=== PATIENT | male | born 2000 ===

== ENCOUNTER 2024-02-26 18:00 | Emergency (ER) | payer OTHER ==
[~2024-02-26] VITALS: Ht 167.6 cm; Wt 80.0 kg
[2024-02-26 19:17] VITALS: BP 125/78; PULSE 95; RESP 16; TEMP 98.2; O2SAT 98
== END 2024-02-26 19:19 ==
LOC: ER 18:01
DX: Z04.1 Encounter for examination and observation following transport accident (principal)
CPT/HCPCS: 99283